=== PATIENT | female | born 1985 | race Caucasian/White ===

== ENCOUNTER 2023-12-24 19:44 | Emergency (ER) | payer OTHER ==
[~2023-12-24] VITALS: Ht 162.6 cm; Wt 72.1 kg
[~2023-12-24 19:44] MED LIST: BIRTH CONTROL; CEFP200 PO; CIPR500 PO; NUVA RING; OXYACE5T PO; PROM25 PO; RANI150; SULTRIDS PO; [UNRECOGNIZED DRUG - OTHER]; [UNRECOGNIZED DRUG - OTHER]
[2023-12-24] MEDS ORDERED: EPINEPhrine HCl 1 MG/ML 1ML Amp SC ONE (19:55)
[2023-12-24] MEDS ORDERED: Famotidine 10 MG/ML 2ML Vial IV ONE (19:55)
[2023-12-24] MEDS ORDERED: Dexamethasone Sod Phos 10 MG/ML 1ML VIAL IV ONE (19:55)
[2023-12-24] MEDS ORDERED: NS 1,000 ML IV SCH (19:55)
[2023-12-24] MEDS ORDERED: EpiNEPhrine 1 MG/1 ML 1ML Vial SC ONE (20:05)
[2023-12-24] MEDS ORDERED: Ketorolac Tromethamine 15mg Vial IV ONE (21:05)
[2023-12-24 21:15] VITALS: BP 155/93
[2023-12-24] MEDS ORDERED: EPIPEN0.3 MG/0.3 IM (21:25)
== END 2023-12-24 21:30 | disposition home or self-care (01) ==
LOC: ER 19:44
DX: T63.441A Toxic effect of venom of bees, accidental (unintentional), initial encounter (principal); Z88.2 Allergy status to sulfonamides
CPT/HCPCS: 96361; 96374; 96375; 99282-25; J0171; J1100; J1885; J7030